=== PATIENT | female | born 1940 | race Caucasian/White ===

== ENCOUNTER → 2020-05-29 | Outpatient (CLI) | payer MEDICARE, OTHER ==
[~2020-05-29] MED LIST: ALBU18HF INH; BUDE10.2 INH; DIPH1TAB6 PO; FLEC50TA25 PO; FLUT9.9S NS; FURO20TA3 PO; GABA300C PO; LEVO125T PO; LOSA50TA14 PO; METO-93 PO; MIRA50TA PO; MULT-449 PO; OMEP10CA5 PO; POTA20TA89 PO
[2020-05-29 16:25] LABS: BASOPHILS % (AUTO) 1 % (0-1); EOSINOPHILS % (AUTO) 4 % (1-7); LYMPHOCYTES % (AUTO) 17 % (22-44); MEAN CORPUSCULAR HEMOGLOBIN 28.9 pg (27.0-34.8); MEAN CORPUSCULAR HGB CONC 33.6 g/dL (32.4-35.8); MEAN PLATELET VOLUME 8.7 fL (7.4-10.4); MONOCYTES % (AUTO) 9 % (2-9); NEUTROPHILS % (AUTO) 70 % (42-75); PLATELET COUNT 175 x10^3/uL (130-400); RED BLOOD COUNT 5.03 x10^6/uL (3.82-5.3); RED CELL DISTRIBUTION WIDTH 14.6 % (9.6-15.2)
[2020-05-29 16:26] LABS: MD NO
[2020-05-29 16:34] LABS: ALBUMIN 3.6 g/dL (3.4-5.0); ANION GAP 7 mmol/L (5-15); CALCIUM 8.8 mg/dL (8.5-10.1); CHLORIDE 107 mmol/L (98-107)
[2020-05-29 16:37] LABS: ALANINE AMINOTRANSFERASE 30 U/L (12-78); ALKALINE PHOSPHATASE 82 U/L (45-117); BILIRUBIN,TOTAL 0.7 mg/dL (0.2-1.0); CREATININE 1.47 mg/dL (0.55-1.02); TOTAL PROTEIN 8.2 g/dL (6.4-8.2)
[2020-05-29 16:42] LABS: INTERNATIONAL NORMALIZED RATIO 1.02 (0.93-1.1); PROTHROMBIN TIME 10.9 Seconds (9.6-11.5)
== END | disposition home or self-care (01) ==
LOC: STAR 14:59
PROVIDERS: ATTEND Orthopaedic Surgery
DX: Z01.812 Encounter for preprocedural laboratory examination (principal); Z20.822 Contact with and (suspected) exposure to COVID-19; M16.12 Unilateral primary osteoarthritis, left hip; Z79.01 Long term (current) use of anticoagulants
CPT/HCPCS: 80053; 83036; 85025; 85610; 85730; 87081; 87635; 87806; 93005; G0475

== ENCOUNTER 2020-06-04 06:32 | Inpatient (IN) | payer MEDICARE, OTHER ==
[~2020-06-04] VITALS: Ht 167.6 cm; Wt 86.0 kg
[2020-06-04] MEDS ORDERED: ROPIvacaine/PF 0.2%, 20 ML ONE (07:16)
[2020-06-04] MEDS ORDERED: TRANEXAMIC ACID 100 MG/ML, 10ML ONE ×3 (07:16→08:53)
[2020-06-04] MEDS ORDERED: KETOROLAC 60 MG/2 ML ONE (07:16)
[2020-06-04] MEDS ORDERED: EPINEPHRINE 1 MG/ML, 1ML ONE (07:17)
[2020-06-04] MEDS ORDERED: SODIUM CHLORIDE 0.9% 50 ML ONE (07:17)
[2020-06-04] MEDS ORDERED: VANCOMYCIN 1,000 MG ONE (07:17)
[2020-06-04] MEDS ORDERED: CHLORHEXIDINE 15 ML UDC MM ONE (07:30)
[2020-06-04] MEDS ORDERED: LACTATED RINGERS 1,000 ML IV SCH (07:30)
[2020-06-04] MEDS ORDERED: GABAPENTIN 300 MG CAPSULE PO ONE (07:30)
[2020-06-04] MEDS ORDERED: ACETAMINOPHEN 500 MG TABLET PO ONE (07:30)
[2020-06-04] MEDS ORDERED: FENTANYL PF 250 MCG/5ML ONE (07:57)
[2020-06-04] MEDS ORDERED: DEXAMETHASONE 4 MG/ML, 5ML ONE (07:59)
[2020-06-04] MEDS ORDERED: ROCURONIUM 10MG/ML,5ML ONE (08:00)
[2020-06-04] MEDS ORDERED: PROPOFOL 10 MG/ML, 20ML ONE (08:01)
[2020-06-04] MEDS ORDERED: ONDANSETRON 2MG/ML, 2ML ONE (08:28)
[2020-06-04] MEDS ORDERED: CEFAZOLIN 1,000 MG ONE (08:28)
[2020-06-04] MEDS ORDERED: SUGAMMADEX 200 MG/2 ML IVPush ONE (08:28)
[2020-06-04] MEDS ORDERED: GLYCOPYRROLATE 0.2MG/1ML, 5ML ONE (08:28)
[2020-06-04] MEDS ORDERED: ONDANSETRON 2MG/ML, 2ML IVPush PRN ×2 (08:30→09:00)
[2020-06-04] MEDS ORDERED: MAGNESIUM HYDROXIDE 8%, 30ML UDC PO PRN (08:30)
[2020-06-04] MEDS ORDERED: DEXAMETHASONE 4 MG/ML, 1ML IVPush SCH (08:30)
[2020-06-04] MEDS ORDERED: HYDROmorphone 1 MG/ML, 1ML INJ IVPush PRN ×2 (08:30→09:00)
[2020-06-04] MEDS ORDERED: PSYLLIUM PACKET PO PRN (08:30)
[2020-06-04] MEDS ORDERED: METOCLOPRAMIDE 5 MG/ML, 2ML IVPush PRN (08:30)
[2020-06-04] MEDS ORDERED: PROMETHAZINE 25 MG/ML, 1ML IM PRN (08:30)
[2020-06-04] MEDS ORDERED: DIPHENHYDRAMINE 50 MG/ML, 1ML IVPush PRN ×3 (08:30→09:00)
[2020-06-04] MEDS ORDERED: ONDANSETRON 4 MG TABLET PO PRN (08:30)
[2020-06-04] MEDS ORDERED: ALUMINUM/MAG/SIMETHICONE 30 ML UDC PO PRN (08:30)
[2020-06-04] MEDS ORDERED: DIPHENHYDRAMINE 50 MG CAPSULE PO PRN (08:30)
[2020-06-04] MEDS ORDERED: SENNA/DOCUSATE TABLET PO PRN (08:30)
[2020-06-04] MEDS ORDERED: EPHEDRINE 50 MG/ML, 1ML IVPush PRN (09:00)
[2020-06-04] MEDS ORDERED: hydrALAzine 20 MG/ML, 1ML IV PRN (09:00)
[2020-06-04] MEDS ORDERED: ALBUTEROL SULFATE 2.5 MG/3 ML NPPB PRN (09:00)
[2020-06-04] MEDS: ASPIRIN 81 MG TABLET EC PO SCH (09:00)
[2020-06-04] MEDS ORDERED: OXYcodone 5 MG/5 ML ORAL.SOL UDC PO PRN (09:00)
[2020-06-04] MEDS ORDERED: MEPERIDINE/PF 25MG/0.5ML IVPush PRN (09:00)
[2020-06-04] MEDS ORDERED: PROMETHAZINE 25 MG/ML, 1ML IVPush PRN (09:00)
[2020-06-04] MEDS ORDERED: PROMETHAZINE 12.5 MG SUPP PR PRN (09:00)
[2020-06-04] MEDS ORDERED: MIDAZOLAM 1 MG/ML, 2ML IV PRN (09:00)
[2020-06-04] MEDS ORDERED: DIAZEPAM 5 MG/ML, 2ML IVPush PRN (09:00)
[2020-06-04] MEDS: FENTANYL PF 100 MCG/2ML IV PRN ×2 (10:38→11:07)
[2020-06-04] MEDS ORDERED: LABETALOL 5MG/ML, 20ML ONE (10:43)
[2020-06-04] MEDS: LABETALOL 5MG/ML, 20ML IV PRN ×2 (10:44→11:17)
[2020-06-04] MEDS ORDERED: DIPHENOXYLATE/ATROPINE TABLET PO PRN (13:00)
[2020-06-04] MEDS ORDERED: ALBUTEROL HFA 90 MCG/SPRAY INH PRN (13:00)
[2020-06-04 13:29] VITALS: BP 143/83
[2020-06-04] MEDS: FLECAINIDE 50MG TABLET PO SCH (13:35)
[2020-06-04] MEDS: OXYcodone IR 5MG TABLET PO PRN (13:37)
[2020-06-04] MEDS: DOCUSATE 100 MG CAPSULE PO SCH ×3 (13:38→20:27)
[2020-06-04] MEDS: POTASSIUM CHLORIDE 20 MEQ in D5%-0.45% NACL 1,000 ML IV SCH ×2 (13:59→23:00)
[2020-06-04] MEDS: CEFAZOLIN PMX 1GM/50ML 50 ML IVPB SCH (16:22)
[2020-06-04] MEDS: OMEPRAZOLE 10 MG CAPSULE.DR PO SCH (16:22)
[2020-06-04] MEDS: GABAPENTIN 300 MG CAPSULE PO SCH ×2 (16:23→20:27)
[2020-06-04 20:16] VITALS: BP 151/71
[2020-06-04] MEDS: POTASSIUM CHLORIDE 20 MEQ TAB.ER.PRT PO SCH (20:26)
[2020-06-04] MEDS: FUROSEMIDE 20 MG TABLET PO SCH (20:28)
[2020-06-04] MEDS: METOPROLOL SUCCINATE 50 MG TAB.ER.24H PO SCH (20:29)
[2020-06-05] MEDS: CEFAZOLIN PMX 1GM/50ML 50 ML IVPB SCH (00:05)
[2020-06-05] MEDS: OXYcodone IR 5MG TABLET PO PRN ×3 (00:08→21:24)
[2020-06-05 00:14] VITALS: BP 111/64
[2020-06-05] MEDS: FLECAINIDE 50MG TABLET PO SCH ×2 (01:45→13:42)
[2020-06-05] MEDS: ACETAMINOPHEN 325 MG TABLET PO PRN ×4 (02:10→21:24)
[2020-06-05 04:10] VITALS: BP 161/62
[2020-06-05] MEDS: OMEPRAZOLE 10 MG CAPSULE.DR PO SCH ×2 (05:49→17:02)
[2020-06-05] MEDS: LEVOTHYROXINE 125 MCG TABLET PO SCH (05:49)
[2020-06-05] MEDS: ASPIRIN 81 MG TABLET EC PO SCH ×3 (05:50→21:24)
[2020-06-05 08:08] VITALS: BP 106/61
[2020-06-05] MEDS: MIRABEGRON HOMEMEDPO SCH (09:00)
[2020-06-05] MEDS: DOCUSATE 100 MG CAPSULE PO SCH ×2 (09:00→21:00)
[2020-06-05] MEDS: FUROSEMIDE 20 MG TABLET PO SCH ×2 (09:29→21:25)
[2020-06-05] MEDS: GABAPENTIN 300 MG CAPSULE PO SCH ×3 (09:29→21:25)
[2020-06-05] MEDS: FLUTICASONE/VILANTEROL 100-25MCG/INH INH SCH (09:49)
[2020-06-05] MEDS: FLUTICASONE NASAL SPRAY 16GM NAS SCH (09:49)
[2020-06-05] MEDS: LOSARTAN 50MG TABLET PO SCH (09:49)
[2020-06-05] MEDS: POTASSIUM CHLORIDE 20 MEQ in D5%-0.45% NACL 1,000 ML IV SCH (12:28)
[2020-06-05 13:45] VITALS: BP 96/59
[2020-06-05 19:06] VITALS: BP 137/79
[2020-06-05] MEDS: POTASSIUM CHLORIDE 20 MEQ TAB.ER.PRT PO SCH (21:25)
[2020-06-05] MEDS: METOPROLOL SUCCINATE 50 MG TAB.ER.24H PO SCH (21:25)
[2020-06-06] MEDS: FLECAINIDE 50MG TABLET PO SCH ×2 (01:31→13:00)
[2020-06-06 01:47] VITALS: BP 94/58
[2020-06-06] MEDS: POTASSIUM CHLORIDE 20 MEQ in D5%-0.45% NACL 1,000 ML IV SCH ×2 (01:56→20:56)
[2020-06-06] MEDS: LEVOTHYROXINE 125 MCG TABLET PO SCH ×2 (05:56→06:00)
[2020-06-06] MEDS: OMEPRAZOLE 10 MG CAPSULE.DR PO SCH ×3 (05:56→15:44)
[2020-06-06] MEDS: DOCUSATE 100 MG CAPSULE PO SCH ×2 (08:23→20:57)
[2020-06-06] MEDS: LOSARTAN 50MG TABLET PO SCH (08:23)
[2020-06-06] MEDS: FUROSEMIDE 20 MG TABLET PO SCH ×2 (08:23→20:56)
[2020-06-06] MEDS: GABAPENTIN 300 MG CAPSULE PO SCH ×3 (08:23→20:56)
[2020-06-06] MEDS: FLUTICASONE NASAL SPRAY 16GM NAS SCH (08:23)
[2020-06-06] MEDS: FLUTICASONE/VILANTEROL 100-25MCG/INH INH SCH (08:24)
[2020-06-06] MEDS: ASPIRIN 81 MG TABLET EC PO SCH ×2 (08:24→20:57)
[2020-06-06] MEDS: MIRABEGRON HOMEMEDPO SCH (08:25)
[2020-06-06 08:50] VITALS: BP 130/77
[2020-06-06 15:45] VITALS: BP 140/77
[2020-06-06 17:39] LABS: BASOPHILS % (AUTO) 0 % (0-1); EOSINOPHILS % (AUTO) 1 % (1-7); LYMPHOCYTES % (AUTO) 16 % (22-44); MEAN CORPUSCULAR HGB CONC 33.7 g/dL (32.4-35.8); MEAN PLATELET VOLUME 8.8 fL (7.4-10.4); MONOCYTES % (AUTO) 10 % (2-9); NEUTROPHILS % (AUTO) 73 % (42-75); PLATELET COUNT 135 x10^3/uL (130-400); RED BLOOD COUNT 3.83 x10^6/uL (3.82-5.3)
[2020-06-06 17:41] LABS: MD NO
[2020-06-06 18:02] LABS: ALANINE AMINOTRANSFERASE 15 U/L (12-78); ALBUMIN 2.5 g/dL (3.4-5.0); ANION GAP 10 mmol/L (5-15); CALCIUM 8.1 mg/dL (8.5-10.1); CHLORIDE 103 mmol/L (98-107); CREATININE 1.07 mg/dL (0.55-1.02)
[2020-06-06 18:04] LABS: ALKALINE PHOSPHATASE 54 U/L (45-117); BILIRUBIN,TOTAL 0.6 mg/dL (0.2-1.0); TOTAL PROTEIN 6.4 g/dL (6.4-8.2)
[2020-06-06 19:56] VITALS: BP 141/63
[2020-06-06 20:27] LABS: MICROSCOPIC INDICATED
[2020-06-06] MEDS: POTASSIUM CHLORIDE 20 MEQ TAB.ER.PRT PO SCH (20:57)
[2020-06-06] MEDS: METOPROLOL SUCCINATE 50 MG TAB.ER.24H PO SCH (20:58)
[2020-06-07 00:44] VITALS: BP 132/71
[2020-06-07] MEDS: FLECAINIDE 50MG TABLET PO SCH ×2 (01:32→13:20)
[2020-06-07] MEDS: OMEPRAZOLE 10 MG CAPSULE.DR PO SCH ×2 (06:12→16:05)
[2020-06-07] MEDS: LEVOTHYROXINE 125 MCG TABLET PO SCH (06:13)
[2020-06-07 06:45] VITALS: BP 145/78
[2020-06-07] MEDS: MIRABEGRON HOMEMEDPO SCH (09:00)
[2020-06-07] MEDS: LOSARTAN 50MG TABLET PO SCH (09:58)
[2020-06-07] MEDS: ASPIRIN 81 MG TABLET EC PO SCH ×2 (09:58→20:55)
[2020-06-07] MEDS: DOCUSATE 100 MG CAPSULE PO SCH ×2 (09:58→20:55)
[2020-06-07] MEDS: GABAPENTIN 300 MG CAPSULE PO SCH ×3 (09:58→20:55)
[2020-06-07] MEDS: FUROSEMIDE 20 MG TABLET PO SCH ×2 (09:58→20:56)
[2020-06-07] MEDS: FLUTICASONE NASAL SPRAY 16GM NAS SCH (09:59)
[2020-06-07] MEDS: FLUTICASONE/VILANTEROL 100-25MCG/INH INH SCH (09:59)
[2020-06-07] MEDS: ACETAMINOPHEN 325 MG TABLET PO PRN ×2 (10:33→18:50)
[2020-06-07] MEDS: POTASSIUM CHLORIDE 20 MEQ in D5%-0.45% NACL 1,000 ML IV SCH ×2 (11:19→23:28)
[2020-06-07 15:56] VITALS: BP 99/59
[2020-06-07 16:08] VITALS: BP 109/69
[2020-06-07 19:39] VITALS: BP 127/75
[2020-06-07] MEDS: METOPROLOL SUCCINATE 50 MG TAB.ER.24H PO SCH (20:55)
[2020-06-07] MEDS: POTASSIUM CHLORIDE 20 MEQ TAB.ER.PRT PO SCH (20:55)
[2020-06-07 23:05] VITALS: BP 120/70
[2020-06-08 00:11] VITALS: BP 120/70
[2020-06-08] MEDS: FLECAINIDE 50MG TABLET PO SCH ×2 (00:22→12:35)
[2020-06-08] MEDS: OMEPRAZOLE 10 MG CAPSULE.DR PO SCH ×2 (04:56→16:15)
[2020-06-08] MEDS: LEVOTHYROXINE 125 MCG TABLET PO SCH (04:57)
[2020-06-08 07:20] VITALS: BP 124/66
[2020-06-08] MEDS: ASPIRIN 81 MG TABLET EC PO SCH (07:59)
[2020-06-08] MEDS: FUROSEMIDE 20 MG TABLET PO SCH (08:01)
[2020-06-08] MEDS: GABAPENTIN 300 MG CAPSULE PO SCH ×2 (08:02→16:15)
[2020-06-08] MEDS: FLUTICASONE NASAL SPRAY 16GM NAS SCH (08:02)
[2020-06-08] MEDS: MIRABEGRON HOMEMEDPO SCH (08:02)
[2020-06-08] MEDS: FLUTICASONE/VILANTEROL 100-25MCG/INH INH SCH (08:02)
[2020-06-08] MEDS: DOCUSATE 100 MG CAPSULE PO SCH ×2 (08:02→08:04)
[2020-06-08] MEDS: LOSARTAN 50MG TABLET PO SCH (08:02)
[2020-06-08] MEDS ORDERED: NITR100C56 PO (09:49)
[2020-06-08] MEDS ORDERED: ASPI81TA45 PO (09:49)
[2020-06-08] MEDS ORDERED: TRAM50TA2 PO (09:50)
[2020-06-08] MEDS ORDERED: OXYC5CAP2 PO (09:51)
[2020-06-08] MEDS ORDERED: DOCU-131 PO (09:51)
[2020-06-08] MEDS ORDERED: ONDA4TAB7 PO (09:52)
[2020-06-08 09:55] LABS: BASOPHILS % (AUTO) 0 % (0-1); EOSINOPHILS % (AUTO) 2 % (1-7); LYMPHOCYTES % (AUTO) 11 % (22-44); MEAN CORPUSCULAR HGB CONC 33.7 g/dL (32.4-35.8); MEAN PLATELET VOLUME 8.5 fL (7.4-10.4); MONOCYTES % (AUTO) 8 % (2-9); NEUTROPHILS % (AUTO) 78 % (42-75); PLATELET COUNT 184 x10^3/uL (130-400); RED BLOOD COUNT 4.22 x10^6/uL (3.82-5.3)
[2020-06-08 09:58] LABS: MD NO
[2020-06-08 12:35] VITALS: BP 122/70
[2020-06-08 13:57] LABS: ANION GAP 6 mmol/L (5-15); CALCIUM 8.6 mg/dL (8.5-10.1); CHLORIDE 103 mmol/L (98-107); CREATININE 0.98 mg/dL (0.55-1.02)
== END 2020-06-08 17:49 | disposition home health service (06) | DRG 469 ==
LOC: OUT 06:32 → ORIP 08:27 → 4NE 11:51 → OBSVTOIN 06-06 14:32 → 4EST 06-06 19:45 → 4NE 06-07 23:01
PROVIDERS: ADMIT Orthopaedic Surgery; ATTEND Orthopaedic Surgery
PROC: 0SRB06A Replacement of Left Hip Joint with Oxidized Zirconium on Polyethylene Synthetic Substitute, Uncemented, Open Approach (ICD-10-PCS; principal; 2020-06-06)
PROC: 0QS704Z Reposition Left Upper Femur with Internal Fixation Device, Open Approach (ICD-10-PCS; 2020-06-06)
PROC: 0T9B30Z Drainage of Bladder with Drainage Device, Percutaneous Approach (ICD-10-PCS; 2020-06-06)
DX: M16.12 Unilateral primary osteoarthritis, left hip (principal); G93.41 Metabolic encephalopathy; M87.9 Osteonecrosis, unspecified; M25.552 Pain in left hip; E03.9 Hypothyroidism, unspecified; G89.29 Other chronic pain; I12.9 Hypertensive chronic kidney disease with stage 1 through stage 4 chronic kidney disease, or unspecified chronic kidney disease; I25.10 Atherosclerotic heart disease of native coronary artery without angina pectoris; I89.0 Lymphedema, not elsewhere classified; M81.0 Age-related osteoporosis without current pathological fracture; N18.9 Chronic kidney disease, unspecified; T50.905A Adverse effect of unspecified drugs, medicaments and biological substances, initial encounter; Z86.73 Personal history of transient ischemic attack (TIA), and cerebral infarction without residual deficits; Z90.710 Acquired absence of both cervix and uterus; Z91.81 History of falling; Z96.642 Presence of left artificial hip joint; Z96.653 Presence of artificial knee joint, bilateral; M21.619 Bunion of unspecified foot; Z95.818 Presence of other cardiac implants and grafts; Z82.49 Family history of ischemic heart disease and other diseases of the circulatory system; Z88.8 Allergy status to other drugs, medicaments and biological substances; Z88.1 Allergy status to other antibiotic agents; Z91.040 Latex allergy status
CPT/HCPCS: 36415; 70450; 72170; 80048; 80053; 81001; 82140; 82962; 84443; 85014; 85018; 85025; 86850; 86900; 87077; 87086; 87186; 93005; C1713; G0378; J0171; J0690; J1100; J1885; J2405; J2704; J2795; J3010; J3370; J3480; C1776; J7120